=== PATIENT | female | born 1990 | race Two or more races ===

== ENCOUNTER 2017-09-17 19:16 | Emergency (ER) | payer MEDICAID ==
[~2017-09-17] VITALS: Ht 167.6 cm; Wt 67.0 kg
[2017-09-17] MEDS ORDERED: MORPHINE SULFATE 4 MG/ML CPJ (NOT FOR IM USE) IV STA (22:29)
[2017-09-17] MEDS ORDERED: SODIUM CHLORIDE 0.9% 1,000 ML IV ONE (22:29)
[2017-09-17] MEDS ORDERED: ONDANSETRON HCL 4MG/2ML VIAL IV STA (22:29)
[2017-09-17 22:46] LABS: CLARITY URINE CLEAR (CLEAR); COLOR URINE DARK YELLOW (YELLOW); GLUCOSE URINE NEGATIVE (NEGATIVE); KETONES URINE NEGATIVE (NEGATIVE); LEUKOCYTE ESTERASE URINE NEGATIVE (NEGATIVE); NITRITE URINE NEGATIVE (NEGATIVE); OCCULT BLOOD URINE NEGATIVE (NEGATIVE); PH URINE 5.5 (4.5-8.0); PROTEIN URINE 1+ (NEGATIVE); SPECIFIC GRAVITY URINE 1.038 (1.005-1.030)
[2017-09-17 22:56] LABS: *AMPHETAMINES SCREEN URINE NEGATIVE (NEGATIVE); *BARBITURATES SCREEN URINE NEGATIVE (NEGATIVE); *BENZODIAZEPINES SCREEN URINE NEGATIVE (NEGATIVE); *COCAINE SCREEN URINE NEGATIVE (NEGATIVE); METHADONE URINE SCREEN NEGATIVE (NEGATIVE); OPIATES URINE SCREEN NEGATIVE (NEGATIVE); PHENCYCLIDINE URINE SCREEN NEGATIVE (NEGATIVE)
[2017-09-17 23:05] LABS: CANNABINOID URINE SCREEN PRESUMTIVE POSITIVE (NEGATIVE)
[2017-09-17] MEDS ORDERED: MORPHINE SULFATE 10 MG/ML CPJ IV NR (23:30)
[2017-09-17 23:32] LABS: BASOPHILS % 0.3 % (0.0-2.0); HEMATOCRIT. 35.6 % (36.0-48.0); HEMOGLOBIN. 12.1 g/dL (12.0-16.0); LYMPHOCYTES % 22.9 % (20.0-50.0); MEAN CORPUSCULAR HEMOGLOBIN 30.4 pg (28.0-32.0); MEAN CORPUSCULAR VOLUME 89.3 fL (81.0-99.0); MEAN PLATELET VOLUME 9.6 fl (7.4-10.4); NEUTROPHILS % 67.8 % (40.0-76.0); PLATELET 223 x1000/uL (130-400); RED BLOOD CELL COUNT 3.99 mill/uL (4.2-5.4); RED CELL DISTRIBUTION WIDTH 14.5 % (11.6-14.6)
[2017-09-17 23:39] LABS: CARBON DIOXIDE 25 mEq/L (21-32); CHLORIDE 111 mEq/L (98-107); CREATINE KINASE 153 IU/L (26-192); ETHANOL BLOOD < 10 mg/dL
[2017-09-18] MEDS ORDERED: TRAMADOL 50MG TABLET PO ONE (02:15)
[2017-09-18 02:44] VITALS: BP 109/61
== END 2017-09-18 02:46 | disposition home or self-care (01) ==
LOC: ER 21:00
DX: S00.93XA Contusion of unspecified part of head, initial encounter (principal); R55 Syncope and collapse; G43.909 Migraine, unspecified, not intractable, without status migrainosus; Z88.6 Allergy status to analgesic agent; W18.2XXA Fall in (into) shower or empty bathtub, initial encounter; Y93.E1 Activity, personal bathing and showering; Y92.012 Bathroom of single-family (private) house as the place of occurrence of the external cause
CPT/HCPCS: 36415; 70450; 80053; 80305; 81001; 81025; 82550; 85025; 93005; 96361; 96374; 96375; 99285; G0482; J2270; J2405; J7030; Z7610

== ENCOUNTER 2017-11-14 10:01 | Emergency (ER) | payer MEDICAID, OTHER ==
[~2017-11-14] VITALS: Ht 160 cm; Wt 68.0 kg
[2017-11-14 13:10] VITALS: BP 111/74
[2017-11-14] MEDS ORDERED: HYDROCODONE/ACETAMINOPHEN 5/325MG TABLET PO ONE (13:15)
== END 2017-11-14 13:25 | disposition home or self-care (01) ==
LOC: ER 11:32
DX: M79.641 Pain in right hand (principal); M79.631 Pain in right forearm; Y04.2XXA Assault by strike against or bumped into by another person, initial encounter; Y07.04 Female partner, perpetrator of maltreatment and neglect; Y93.89 Activity, other specified; Y92.009 Unspecified place in unspecified non-institutional (private) residence as the place of occurrence of the external cause
CPT/HCPCS: 70486; 73090; 73130; 81025; 99284

== ENCOUNTER 2017-11-23 09:53 | Emergency (ER) | payer MEDICAID, OTHER ==
[~2017-11-23] VITALS: Ht 160 cm; Wt 63.0 kg
[2017-11-23 13:05] VITALS: BP 119/71
[2017-11-23] MEDS: ONDANSETRON HCL 4MG TABLET PO ONE (13:15)
[2017-11-23] MEDS: ACETAMINOPHEN 325MG TABLET PO ONE (13:50)
== END 2017-11-23 14:22 | disposition home or self-care (01) ==
LOC: ER 11:09
DX: G43.909 Migraine, unspecified, not intractable, without status migrainosus (principal); Z88.6 Allergy status to analgesic agent
CPT/HCPCS: 99282; Q0162

== ENCOUNTER 2018-02-05 05:00 | Emergency (ER) | payer MEDICAID ==
[~2018-02-05] VITALS: Ht 160 cm; Wt 64.0 kg
[2018-02-05] MEDS ORDERED: IBUPROFEN 600MG TABLET PO ONE (10:00)
[2018-02-05] MEDS ORDERED: ACETAMINOPHEN 325MG TABLET PO ONE (10:15)
[2018-02-05] MEDS ORDERED: ACETAMINOPHEN WITH CODEINE 300/30MG TABLET PO ONE (10:15)
[2018-02-05 10:42] VITALS: BP 111/79
== END 2018-02-05 10:31 | disposition home or self-care (01) ==
LOC: ER 05:46
DX: R07.9 Chest pain, unspecified (principal); J45.909 Unspecified asthma, uncomplicated; Z88.6 Allergy status to analgesic agent; Z69.11 Encounter for mental health services for victim of spousal or partner abuse
CPT/HCPCS: 71045; 81025; 93005; 99284; Z7610

== ENCOUNTER 2018-08-02 14:10 | Emergency (ER) | payer MEDICAID ==
[~2018-08-02] VITALS: Ht 160 cm; Wt 59.0 kg
[2018-08-02] MEDS ORDERED: HYDROCODONE/ACETAMINOPHEN 5/325MG TABLET PO ONE (16:15)
[2018-08-02 17:13] VITALS: BP 122/80
== END 2018-08-02 17:14 | disposition home or self-care (01) ==
LOC: ER 14:10
DX: S62.306A Unspecified fracture of fifth metacarpal bone, right hand, initial encounter for closed fracture (principal); J45.909 Unspecified asthma, uncomplicated; Z88.6 Allergy status to analgesic agent; W22.8XXA Striking against or struck by other objects, initial encounter; Y93.89 Activity, other specified; Y92.89 Other specified places as the place of occurrence of the external cause; Y99.8 Other external cause status
CPT/HCPCS: 29125; 73130; 81025; 99284

== ENCOUNTER 2018-08-28 10:47 | Emergency (ER) | payer MEDICAID ==
[~2018-08-28] VITALS: Ht 162.6 cm; Wt 61.0 kg
[2018-08-28 11:27] VITALS: BP 128/80
== END 2018-08-28 13:08 | disposition home or self-care (01) ==
LOC: ER 10:47
DX: S62.396D Other fracture of fifth metacarpal bone, right hand, subsequent encounter for fracture with routine healing (principal); J45.909 Unspecified asthma, uncomplicated; Z88.6 Allergy status to analgesic agent; X58.XXXD Exposure to other specified factors, subsequent encounter
CPT/HCPCS: 29125; 99283

== ENCOUNTER 2018-10-30 04:14 | Emergency (ER) | payer MEDICAID ==
[~2018-10-30] VITALS: Ht 165.1 cm; Wt 59.0 kg
[2018-10-30] MEDS ORDERED: ONDANSETRON HCL 4MG/2ML INJ IV STA (05:05)
[2018-10-30] MEDS ORDERED: MORPHINE SULFATE 2 MG/ML CPJ (NOT FOR IM USE) IV ONE (05:15)
[2018-10-30] MEDS ORDERED: SUMATRIPTAN SUCCINATE 25MG TABLET PO ONE (06:45)
[2018-10-30 07:30] VITALS: BP 116/65
== END 2018-10-30 07:49 | disposition home or self-care (01) ==
LOC: ER 04:14
DX: S09.8XXA Other specified injuries of head, initial encounter (principal); S00.531A Contusion of lip, initial encounter; Z88.6 Allergy status to analgesic agent; J45.909 Unspecified asthma, uncomplicated; Y08.89XA Assault by other specified means, initial encounter; Y93.89 Activity, other specified; Y92.018 Other place in single-family (private) house as the place of occurrence of the external cause
CPT/HCPCS: 70450; 70486; 93005; 96374; 96375; 99284; J2270; J2405

== ENCOUNTER 2018-12-14 15:07 | Emergency (ER) | payer MEDICAID ==
[~2018-12-14] VITALS: Ht 162.6 cm; Wt 61.0 kg
[2018-12-14 15:20] VITALS: BP 150/88
== END 2018-12-14 20:19 | disposition left against medical advice (07) ==
LOC: ER 15:07
DX: Z53.21 Procedure and treatment not carried out due to patient leaving prior to being seen by health care provider (principal); Z88.6 Allergy status to analgesic agent